=== PATIENT | female | born 1930 | race Caucasian/White ===

== ENCOUNTER 2018-10-10 17:30 | Inpatient (IN) | payer OTHER, BC ==
[~2018-10-10] VITALS: Ht 157.5 cm; Wt 68.9 kg
[2018-10-10 17:58] LABS: BASOPHIL % 0.2 % (0-2); PLATELET COUNT 213 x10^3mcL (130-400); RED CELL DISTRIBUTION WIDTH 14.1 % (11.5-14.5)
--- NOTE | 2018-10-10 18:12 | NUR ---
RECEIVED PATIENT, BIBA WITH [facility], PATIENT HERE FOR N/V TODAY X 3.//APR RN
[2018-10-10 18:13] LABS: CALCIUM 8.9 mg/dL (8.5-10.1); CARBON DIOXIDE 27.5 mmol/L (21-32); CHLORIDE SERUM 102 mmol/L (98-107); CREATININE SERUM 0.7 mg/dL (0.6-1.0); GLUCOSE SERUM 142 mg/dL (74-106); POTASSIUM SERUM 3.5 mmol/L (3.5-5.1); SODIUM SERUM 139 mmol/L (136-145)
[2018-10-10 18:18] LABS: ALBUMIN 2.8 g/dL (3.4-5.0); ALKALINE PHOSPHATASE 112 U/L (46-116); ALT/SGPT 18 U/L (14-59); AST/SGOT 9 U/L (15-37); BILIRUBIN TOTAL 0.47 mg/dL (0.20-1.00); TOTAL PROTEIN, SERUM 6.6 g/dL (6.4-8.2)
--- NOTE | 2018-10-10 18:30 | NUR ---
DR BLOOM AT BEDSIDE FOR RECTAL EXAM FOR OCCULT BLOOD, APR RN AT BEDSIDE VEGETABLE II FARMWORKER, CORN GRINDER AT BEDSIDE AT THIS TIME. PATIENT TOLERATED PROCEDURE WELL.WILL CONTINUE TO MONITOR//APR RN
--- NOTE | 2018-10-10 19:10 | NUR ---
RECEIVED REPORT FROM RAVI GOLDEN FOR CONTINUED CARE OF PATIENT.
--- NOTE | 2018-10-10 19:15 | NUR ---
REPORT GIVEN TO HAVEN RN FOR ISHAAN ENDORSEMETN//APR RN
--- NOTE | 2018-10-10 19:20 | NUR ---
INTRODUCED SELF TO PATIENT. PATIENT LYING ON GURNEY WITH CAREGIVER BEDSIDE. VSS, BREATHING E/U- NAD NOTED. WILL CONTINUE TO MONITOR.
--- NOTE | 2018-10-10 19:40 | NUR ---
PROVIDED CAREGIVER WIPES, CHUX AND DIAPERS PER REQUEST.
[2018-10-10] MEDS ORDERED: ONDANSETRON4 M3 SL (20:01)
[2018-10-10] MEDS ORDERED: NATURE S BOUNTY GT (20:03)
[2018-10-10] MEDS ORDERED: NUVIGIL150 M1 GT ×2 (20:04→20:06)
[2018-10-10] MEDS ORDERED: LIPI20 GT (20:07)
[2018-10-10] MEDS ORDERED: BIOTENE DRY MO473 ML (20:08)
[2018-10-10] MEDS ORDERED: CHLORHEXIDINE118 ML (20:09)
[2018-10-10] MEDS ORDERED: COLACE100 MG GT (20:10)
[2018-10-10] MEDS ORDERED: LACTULOSE20 GM/30 M GT (20:11)
[2018-10-10] MEDS ORDERED: LIDODERM51 TOP (20:12)
[2018-10-10] MEDS ORDERED: KLOR-CON M2020 MEQ GT (20:13)
[2018-10-10] MEDS ORDERED: NOR5 GT (20:14)
[2018-10-10] MEDS ORDERED: PROTONIX40 MG GT (20:14)
[2018-10-10] MEDS ORDERED: ENALAPRIL MALEAT5 MG GT (20:15)
[2018-10-10] MEDS ORDERED: ULTRAM50 MG GT (20:16)
[2018-10-10] MEDS ORDERED: QUETIAPINE FUMA25 M1 GT (20:17)
[2018-10-10] MEDS ORDERED: ZOFRAN8 MG PO (20:18)
--- NOTE | 2018-10-10 20:19 | NUR ---
MEDICATION RECONCILATION COMPLETED.
--- NOTE | 2018-10-10 21:26 | NUR ---
PROVIDED REPORT TO RAVI JARA FOR CONTINUED CARE OF PATIENT. PT VSS, NAD NOTED PRIOR TO TRANSFER. CAREGIVER BEDSIDE.
--- NOTE | 2018-10-10 21:35 | NUR ---
RECEIVED PT VIA [employer] FROM E/D, ACCOMPANIED BY RN, TRANSPORTER, AND PT'S CAREGIVER, RIZWANA. PT A/A/O X 1 (PERSON ONLY) AND SLOW/SLURRED SPEECH AT BASELINE. ON TELE # 30, NSR, HR 97, DENIES CHEST PAIN OR DISCOMFORT AT THIS TIME. SCD BY BEDSIDE. NO ACUTE RESPIRATORY DISTRESS NOTED. ABD SOFT, ROUND, NON-TENDER, NORMOACTIVE BOWEL SOUNDS X 4 QUADS, LAST BM 10/08/18, HARD, ON ASPIRATION PRECAUTIONS, GT TO MID-UPPER ABD 20FR, ON NTL + PUREE DIET TRIAL @ [facility], LOST > 10#/1 MONTH, POOR PO INTAKE, ON GTF. INCONTINENT OF BOWEL/BLADDER. LEFT-SIDED DEFICITS, USES W/C @ [facility], ABLE TO TURN SELF W/ ASSIST. REED 12, SCATTERED ECCHYMOSIS TO R LAT TRUNK, R TROCHANTER, R LAT THIGH, ALL NABEEL. IV SITE LFA 22G, CDI. ORIENTED PT AND CAREGIVER TO ROOM, BED CONTROLS, CALL LIGHT SYSTEM. SIDE RAILS UP X 2, BED IN LOW POSITION. WILL ENDORSE TO RAVI JARA.
[2018-10-10 22:13] VITALS: BP 151/55
--- NOTE | 2018-10-11 01:11 | NUR ---
PT SLEEPING SOUNDLY AND WILL CONTINUE TO MONITOR.
[2018-10-11 05:41] VITALS: BP 144/58
--- NOTE | 2018-10-11 06:21 | NUR ---
PT HAD A RESTING NIGHT NO CHANGE AT THIS TIME,KEPT CELAN AND DRY TO TOUCH AND NO CHANGE AT THIS TIME,WILL CONTINUE TO MONITOR.
--- NOTE | 2018-10-11 06:32 | NUR ---
PT HAD A RESTING NIGHT NO CHANGE AT THIS TIME,WILL CONTINUE TO MONITOR.
[2018-10-11 06:36] LABS: BASOPHIL % 0.4 % (0-2); PLATELET COUNT 170 x10^3mcL (130-400); RED CELL DISTRIBUTION WIDTH 14.5 % (11.5-14.5)
[2018-10-11 07:10] LABS: CREATININE SERUM 0.6 mg/dL (0.6-1.0); MAGNESIUM 1.9 mg/dL (1.8-2.4)
[2018-10-11 07:15] LABS: CALCIUM 8.5 mg/dL (8.5-10.1); CARBON DIOXIDE 24.3 mmol/L (21-32); CHLORIDE SERUM 109 mmol/L (98-107); GLUCOSE SERUM 108 mg/dL (74-106); PHOSPHOROUS 2.9 mg/dL (2.5-4.9); POTASSIUM SERUM 3.5 mmol/L (3.5-5.1); SODIUM SERUM 143 mmol/L (136-145)
--- NOTE | 2018-10-11 07:30 | NUR ---
RECEIVED PT FROM CLINIC CHARGE NURSE. PT AWAKE, ALERT. A/OX1 WITH CONFUSION NOTED. PT ON ROOM AIR WITH NO RESP DISTRESS NOTED. PT ON TELE 30, DENIES CHEST PAIN. IV ACCESS LFA C/D/I INFUSING NS AT 100ML/HR. PT HAS GTUBE, NO FEEDING AT THIS TIME. ACTIVE BS NOTED. PT STATES SHE HAD BM YESTERDAY WITH NO ISSUES. PT INC. PERIPHERAL PULSES PALPABLE, NO EDEMA NOTED. PT NOTED TO HAVE LEFT SIDED WEAKNESS. PT DENIES ABDOMINAL PAIN AT THIS TIME. SAFETY MEASURES IN PLACE. BED LOW AND LOCKED. CALL LIGHT WITHIN REACH.
[2018-10-11 09:11] VITALS: BP 158/59
--- NOTE | 2018-10-11 09:20 | NUR ---
PT WAS SEEN FOR DYSPHAGIA. PT HAD MILD COUGH FOR THIN LIQUID. PT WAS ABLE TO SAFELY SWALLOW PUREE DIET WITH NECTAR THICK LIQUID. RECOMMENDATION PUREE DIET WITH NECTAR THICK LIQUID SMALL BITES AND SIPS ONLY
--- NOTE | 2018-10-11 09:50 | NUR ---
PT TAKEN BY BED FOR EGD. TELEPHONE CONSENT RECEIVED BY JACQUELIN DIALLO-AUDREYATOR. PAPERWORK IN CHART. MEDS HELD FOR PROCEDURE PER DR BRICENO. NEW IV STARTED IN RIGHT FA 22G. LFA IV NOT INFUSING, IV REMOVED WITH CATHETER INTACT. SAFETY MAINTAINED.
[2018-10-11 11:00] VITALS: BP 152/67
--- NOTE | 2018-10-11 11:11 | NUR ---
PT BACK ON FLOOR AFTER PROCEDURE. PT SLEEPY BUT AROUSABLE. PT HAVING PERIODS OF APNEA, O2 2LNC APPLIED. NO ACUTE DISTRESS NOTED AT THIS TIME. SAFETY MEASURES MAINTAINED. VSS.
[2018-10-11 12:43] VITALS: BP 148/64
--- NOTE | 2018-10-11 12:58 | NUR ---
TUBE FEEDING STARTED ORDERED JEVITY 1.2 AT 20ML/HR. H2O FLUSH 30ML/HR Q6 HOURS. PT CAREGIVER AT BEDSIDE. NO ACUTE DISTRESS OR DISCOMFORT NOTED AT THIS TIME. PT ON ROOM AIR WITH NO RESP DISTRESS. HOB AT 35 DEGREES. SAFETY MEASURES MAINTAINED.
--- NOTE | 2018-10-11 15:00 | NUR ---
PT WITH NOTED ANXIETY, RESTLESSNESS, AND ANGER AT THIS TIME. PT TRYING TO GET OUT OF BED WITH CONFUSION NOTED. SEROQUEL ADMINISTERED ORDERED PRN FOR ANXIETY (SEE EMAR). CAREGIVER AT BEDSIDE. WILL CONT TO MONITOR.
--- NOTE | 2018-10-11 15:28 | NUR ---
PT SLEEPING AT THIS TIME. PT NOTED TO HAVE APNEA WHEN SLEEPING.
--- NOTE | 2018-10-11 17:20 | NUR ---
PT COMPLAINING OF HEADACHE. TYLENOL ADMINISTERED ORDERED PRN (SEE EMAR) NO RESIDUAL NOTED, HOB AT 35 DEGREES. SAFETY MAINTAINED. CAREGIVER AT BEDSIDE.
[2018-10-11 18:04] VITALS: BP 144/87
--- NOTE | 2018-10-11 18:54 | NUR ---
PT STABLE AT THIS TIME. ALL NEEDS MET THROUGHOUT SHIFT. WILL CONTINUE TO MONITOR AND ENDORSE CARE TO RN SOCIAL WORK.
--- NOTE | 2018-10-11 19:44 | NUR ---
PT RECIEVED AWAKE ALERT AND ORIENTED TO SELF PLACE AND PERSON, BUT WITH PEROIDS OF FORGETFULNESS,REG RESP NO SOB V/S STABLE,PT ABDO IS SOFT WITH ACTIVE BOWEL SOUNDS,PT HAS GT FEEDING AND PT TOLERATING IT WELL AT THIS TIME,HOB,PT ON TELE MONITOR AND IN NSR NO ECTOPY OR CHEST PAIN AT THIS TIME, KEPT CLEAN AND DRY TO TOUCH,CALL LIGHT EASY REACHED AND WILL CONTINUE TO MONITOR.
[2018-10-11 21:16] VITALS: BP 136/69
--- NOTE | 2018-10-11 23:05 | NUR ---
PT TOLERATING THE FEEDING,REPOSITION AND WAS MADE COMFORTABLE IN BED,WILL CONTINUE TO MONITOR.
[2018-10-12 06:07] VITALS: BP 152/81
--- NOTE | 2018-10-12 06:39 | NUR ---
PT HAD ATRESTING NIGHT NO CHANGE AT THIS TIME,WILL CONTINUE TO MONITOR.
[2018-10-12 06:43] LABS: CALCIUM 9.1 mg/dL (8.5-10.1); CHLORIDE SERUM 109 mmol/L (98-107); CREATININE SERUM 0.7 mg/dL (0.6-1.0); GLUCOSE SERUM 135 mg/dL (74-106); MAGNESIUM 2.3 mg/dL (1.8-2.4); PHOSPHOROUS 3.4 mg/dL (2.5-4.9); POTASSIUM SERUM 3.4 mmol/L (3.5-5.1); SODIUM SERUM 143 mmol/L (136-145)
[2018-10-12 07:12] LABS: BASOPHIL % 0.3 % (0-2); PLATELET COUNT 173 x10^3mcL (130-400)
--- NOTE | 2018-10-12 07:35 | NUR ---
A+OX1, TELE 30, NO RESPRIATORY DISTRESS NOTED, DENIES PAIN, TELE 30, PULSES MODERATE AND EQUAL SIMON, NO EDEMA NOTED, BOWEL SOUNDS ACTIVE, G TUBE TO L ABD WITH JEVITY @ 50 ML/HR, INCONTINENT, L SIDE WEAKNESS, WC BOUND, SCATTERED ECCHYMOSIS, IV IN LFA SALINE LOCKED, SITE WNL.
[2018-10-12 07:51] LABS: RED CELL DISTRIBUTION WIDTH 14.7 % (11.5-14.5)
[2018-10-12 09:17] VITALS: BP 170/68
--- NOTE | 2018-10-12 10:03 | NUR ---
PT RESTING IN BED, TEARFUL, EMOTIONAL, STATES SHE DOESNT KNOW WHAT HAPPENED OR WHY SHE IS HERE. PT REORIENTED, PT VERY ANXIOUS. PT REPOSITIONED TO R SIDE, SEROQUEL GIVEN FOR ANXIETY. 0 RESIDUAL FROM G TUBE. JEVITY INFUSING WELL.
--- NOTE | 2018-10-12 12:13 | NUR ---
PT CONT TO BE EMOTIONAL, ANXIOUS, AND TEARFUL, PT REPOSITIONED TO L SIDE, DID ORAL CARE ON PT, CALL LIGHT WITHIN REACH. PT GIVEN EMOTIONAL SUPPORT.
--- NOTE | 2018-10-12 13:17 | NUR ---
PER JOSEPH GARCIA FOR PT TO HAVE PUREE DIET. PT HAD LARGE BM, PT CLEANED, LINENS CHANGED, PT REQUESTING TO STAY POSITIONED ON L SIDE, HOB @ 90 DEGREES, PT FEEDING SELF, TOLERATING PUREE DIET WELL.
--- NOTE | 2018-10-12 13:30 | NUR ---
1. Recommend Ensure Enlive BID. This will provide additional 700 kcal and 40g protein. 2. Recommend continuing puree diet with nectar thick liquids.
--- NOTE | 2018-10-12 13:30 | NUR ---
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, dementia, HTN, GERD, and osteoarthritis PSHx: Cholecystectomy Labs: K 3.4L, BG 135H, HGB 11.3L Meds: Colace, ferrous sulfate, Lipitor, Lopressor, Reglan, Vitamin D, Zofran Diet: TF Jevity 1.2 @ 20 ml/hr, goal 50 ml/hr, frequency of advancement Q12H, FWF 30ml Q6H PO Intake: NPO Ht: 157.48 cm (62) Wt: 68.9 kg (151#) BMI: 27.8 kg/m2 Bed scale: 69 kg IBW: 110# (50 kg) %IBW: 137 UBW: unable to access Age: 88/F Food Allergies: NKFA Skin: scattered ecchymosis Gonzalo: 15 Edema: none GI: G tube Last BM: 10/10 Per H&P, Pt is a 88 yo female with a PMH of 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 Associated symptoms are chills, chest discomfort, constipation, dysphagia, weakness. She had a G-tube placed 1.5 months ago after her stroke. RDN Visit (10/12): Patient appeared to be confused. TF Jevity 1.2 was running @ 50 ml/hr. Per RAVI Hurtado, patient is very emotional and confused. Patient does not have any N/V and does not have any residuals. Per MAYNOR burris (10/11) patient is safe to consume puree diet with nectar thick liquid, small bites and sips only. FNS received consult for "advise to add protein drinks" on 10/12. Discussed recommendations with Dr. Munguia. Problem with: N/V/D/C: none Problems with: Chewing/Swallowing: yes, per TRANSPORTATION TECHNICIAN [place], pt cleared for puree diet Current appetite: unable to access Recent wt change: unable to access %wt change: N/A Vitamin/Supplement use: unable to access Special diet at home: unable to access Physical activity: unable to access Nutrition education given: not appropriate at this time Food-drug interactions: Colace- high fiber w/8995-9563 ml fluids Education given: no Estimated Nutritional Needs Based on current body weight 68.9 kg Energy: 9682-2154 kcal/d (25-30 kcal/kg) Protein: 68-82 g/d (1.0-1.2 g/kg) - geriatric maintenance Fluid: 0346-0073 ml/d (1 ml/kcal) or per doctor Nutrition Diagnosis 1. Increased nutrient needs related to increased metabolic demands, GI blood loss as evidenced by estimated calorie and protein needs. Intervention 1. Recommend Ensure Enlive BID. This will provide additional 700 kcal and 40g protein. 2. Recommend continuing puree diet with nectar thick liquids. Monitor/Evaluate Goal: PO intake at least 75% of estimated needs Monitor: PO intake, Labs, GI function F/U in 2-3 days as moderate risk 8/3-5
--- NOTE | 2018-10-12 14:04 | NUR ---
PT HAD 2 MORE WATERY BM, CAREGIVER ASSISTED TO CLEAN PT AND REPOSITION HER TO SUPINE, LINENS CHANGED, CALL LIGHT WITHIN REACH.
[2018-10-12 14:13] VITALS: BP 159/68
--- NOTE | 2018-10-12 15:15 | NUR ---
PT HAD ANOTHER WATERY BM, ASSISTED CAREGIVER TO CLEAN PT AND CHANGE LINENS, , PT STATES SHE IS COMFORTABLE IN SUPINE POSITION, CALL LIGHT WITHIN REACH.
--- NOTE | 2018-10-12 15:23 | NUR ---
DR HAMILTON NOTIFIED OF K 3.4 AND STATED K REPLACMENT NOT NECESSARY.
[2018-10-12 17:01] VITALS: BP 147/70
--- NOTE | 2018-10-12 17:36 | NUR ---
PT RESTING IN BED, NO RESPIRATORY DISTRESS NOTED, COMPLAINING OF GENERALIZED PAIN, TYLENOL GIVEN VIA G TUBE, FEEDING TUBING CHANGED, NEW BAG OF JEVITY 1.2 HUNG @ 50 ML/HR WITH H20 @ 30 ML Q6HRS. CAREGIVER AT BEDSIDE. PT COUGHING WHILE EATING PUREE DIET. CALL LIGHT WITHIN REACH.
--- NOTE | 2018-10-12 18:41 | NUR ---
PT RESTING IN BED, NO RESPIRATORY DISTRESS NOTED, REPOSITIONED TO R SIDE, HAD BM AND VOIDED, CLEANED, LINENS CHANGED, CAREGIVER AT BEDSIDE.
--- NOTE | 2018-10-12 19:13 | NUR ---
ENDORSED CARE TO MASSIMO RODRIGUES.
--- NOTE | 2018-10-12 19:30 | NUR ---
PT RESTING IN BED. CAREGIVER AT BEDSIDE. PT AAOX2. ORIENTED TO SELF, PLACE AND MONTH. REORIENTED TO SPECIFIC HOSPITAL AND YEAR. FOLLOWS COMMANDS. SPEECH CLEAR, NO FACIAL DROOP. HX DEMENTIA. TELE 30. DENIES CP, DIZZINESS, OR PALPITATIONS. DENIES RESP DISTRESS SOB. RESPIRATIONS SHALLOW AND UNLABORED, SPO2 94% ON RA. ABD SOFT/ROUND. DENIES ABD PAIN, TENDERNESS, OR N/V. PEG TO LUQ, DRESSING CDI. TF INFUSING JEVITY 1.2 @ 50 ML/HR, 30 ML H20 FLUSH Q6. 30 ML RESIDUAL, REPLACED. VOIDING WITH INCONTINENCT. GEN WEAKNESS. ABLE TO MOVE ALL EXTREMITIES. REPOSITIONING Q2H. ECCHYMOSIS TO SIMON HIPS AND BLE. LIDOCAINE PATCH TO R SHOULDER. DENIES PAIN OR DISCOMFORT AT THIS TIME. IV TO RFA FLUSHED AND PATENT, SITE WNL. CALL LIGHT WITHIN REACH, BED AT LOWEST POSITION, BED ALARM ON, SIDE RAILS UP X3. WILL CONTINUE TO MONITOR.
--- NOTE | 2018-10-12 19:59 | NUR ---
SPOKE TO DR. WAY. MADE AWARE OF K 3.4
[2018-10-12 20:29] VITALS: BP 142/58
--- NOTE | 2018-10-12 23:51 | NUR ---
PT C/O ANXIETY AND BEING UNABLE TO SLEEP. DR. WAY MADE AWARE. CAREGIVER AT BEDSIDE.
--- NOTE | 2018-10-13 00:02 | NUR ---
AMBIEN GIVEN VIA PEG. NO RESIDUAL PRIOR TO ADMINISTRATION. RESPIRATIONS SHALLOW AND UNLABORED. PT DENIES ANY PAIN. CAREGIVER AT BEDSIDE. CALL LIGHT WITHIN REACH, BED AT LOWEST POSITION. WILL CONTINUE TO MONITOR.
--- NOTE | 2018-10-13 01:16 | NUR ---
PT RESTING IN BED WITH EYES CLOSED. CAREGIVER STATES PT IS FALLING IN AND OUT OF SLEEPING. RESPIRATIONS EVEN/UNLABORED ON RA. CALL LIGHT WITHIN REACH, BED AT LOWEST POSITION. WILL CONTINUE TO MONITOR.
--- NOTE | 2018-10-13 05:12 | NUR ---
PT C/O 10/22 R SHOULDER PAIN. LIDOCAINE PATCH IN PLACE. ONLY TYLENOL ON BOARD. MED REC SHOWS PT TAKES TRAMADOL FOR PAIN. DR. WAY MADE AWARE.
[2018-10-13 05:42] VITALS: BP 150/63
--- NOTE | 2018-10-13 06:21 | NUR ---
PT STILL C/O 09/21 R SHOULDER PAIN S/P TRAMADOL. PT ALSO C/O ABD PAIN. ABD SOFT/DISTENDED. TF HELD FOR NOW D/T DISTENTION. NO RESIDUALS. REQUESTED ALT PAIN MED FROM DR. WAY VIA [facility].
[2018-10-13 06:57] LABS: BASOPHIL % 0.1 % (0-2); PLATELET COUNT 198 x10^3mcL (130-400)
[2018-10-13 07:23] LABS: CALCIUM 8.8 mg/dL (8.5-10.1); CHLORIDE SERUM 109 mmol/L (98-107); CREATININE SERUM 0.7 mg/dL (0.6-1.0); GLUCOSE SERUM 149 mg/dL (74-106); MAGNESIUM 2.1 mg/dL (1.8-2.4); PHOSPHOROUS 2.8 mg/dL (2.5-4.9); POTASSIUM SERUM 3.5 mmol/L (3.5-5.1); SODIUM SERUM 145 mmol/L (136-145)
[2018-10-13 07:27] LABS: RED CELL DISTRIBUTION WIDTH 14.9 % (11.5-14.5)
--- NOTE | 2018-10-13 08:13 | NUR ---
A+OX1, CONFUSED, EMOTIONAL, TEARFUL, [place] BOTH EARS, TELE 30, PULSES MODERATE AND EQUAL SIMON, NO EDEMA NOTED, LUNG SOUNDS CTA TOLERATING RA, BOWEL SOUNDS ACTIVE, WATERY BM, PEG TUBE LUQ WITH JEVITY @ 50 ML/HR, 30 ML H2O FLUSH @ 30 ML Q 6HRS, INCONTINENT, GENERALIZED WEAKNESS, L SIDE WEAKNESS, CATTERED ECCHYMOSIS, IV IN RFA SALINE LOCKED, SITE WNL.
[2018-10-13 08:18] VITALS: BP 140/80
--- NOTE | 2018-10-13 09:52 | NUR ---
PT PLACED IN CHAIR BY PHYSICAL THERAPY, CALL LIGHT WITHIN REACH, NO RESPRIATORY DISTRESS NOTED, PT EDUCATED NOT TO GET UP ALONE AND TO USE CALL LIGHT FOR HELP.
--- NOTE | 2018-10-13 10:28 | NUR ---
PT STILL SITTING IN CHAIR AT BEDSIDE, NO RESPRIATORY DISTRESS NOTED, COMPALINING OF PAIN R SHOULDER, LIDOCAINE PATCH PLACED ON R SHOULDER, CALL LIGHT WITHIN REACH.
[2018-10-13 11:39] VITALS: BP 133/78
--- NOTE | 2018-10-13 11:59 | NUR ---
PT RESTING IN BED, NO RESPIRATORY DISTRESS NOTED, COMPLAINING OF BACK PAIN, DECLINED PAIN MEDS, REPOSITIONED TO R SIDE, PEG TUBE CONT TO HAVE 0 RESIDUAL, PT WAS PLACED BACK IN BED BY PHYSICAL THERAPY, CALL LIGHT WITHIN REACH. PT CONT TO BE EMOTIONAL AND TEARFUL. PT GIVEN EMOTIONAL SUPPORT.
--- NOTE | 2018-10-13 14:58 | NUR ---
PT COMPLAINING OF ABD PAIN, ALLYN CLOTHING PATTERN PREPARER AT BEDSIDE TO ASSESS PT, TORADOL IVP GIVEN, CAREGIVER AT BEDSIDE, CALL LIGHT WITHIN REACH.
--- NOTE | 2018-10-13 15:06 | NUR ---
PHYSICAL THERAPY DAILY NOTES CO-SIGN All documentation done by the Sewing Machinist for 10/13/18 has been reviewed. I agree with the documentation. Reviewed/Co-Signed by: Anupama Mixon PT Documentation Done by:ROSAS REYNOLDS PTA
--- NOTE | 2018-10-13 15:44 | NUR ---
PT RESTING IN BED, NO RESPIRATORY DISTRESS NOTED, DENIES PAIN, CAREGIVER AT BEDSIDE, CALL LIGHT WITHIN REACH.
[2018-10-13 15:48] VITALS: BP 150/74
--- NOTE | 2018-10-13 19:10 | NUR ---
RECEIVED PT FROM PREVIOUS SHIFT NURSE. PT AOX2, ORIENTED TO SELF AND PLACE, CONFUSED AND FORGETFUL. ON TELE #30, NSR. DENIES CP/PRESSURE. DENIES SOB/DIFFICULTY BREATHING, ON RA. PEG TO LUQ WITH JEVITY INFUSING AT 50ML/H. GEN WEAKNESS, L. SIDED WEAKNESS MORE THAN R. BED BOUND. ECCHYMOSIS NOTED TO B/L HIPS AND BLE. IV TO RFA, INTACT AND PATENT. BED IN LOWEST POSITION. CALL LIGHT WITHIN REACH. WILL CONTINUE TO MONITOR.
--- NOTE | 2018-10-13 19:46 | NUR ---
ENDORSED CARE TO NURY RODRIGUES.
[2018-10-13 20:38] VITALS: BP 156/76
[2018-10-13 21:39] VITALS: Ht 157.5 cm; Wt 68.9 kg
--- NOTE | 2018-10-14 02:00 | NUR ---
PT RESTING IN BED. RR EVEN AND UNLABORED. IN NO ACUTE DISTRESS. CALL LIGHT WITHIN REACH. BED IN LOWEST POSITION. WILL CONTINUE TO MONITOR.
[2018-10-14 06:01] VITALS: BP 185/72
[2018-10-14 07:12] LABS: CALCIUM 8.2 mg/dL (8.5-10.1); CARBON DIOXIDE 26.2 mmol/L (21-32); CHLORIDE SERUM 109 mmol/L (98-107); CREATININE SERUM 0.7 mg/dL (0.6-1.0); GLUCOSE SERUM 145 mg/dL (74-106); POTASSIUM SERUM 3.5 mmol/L (3.5-5.1); SODIUM SERUM 145 mmol/L (136-145)
--- NOTE | 2018-10-14 07:15 | NUR ---
RECEIVED PT FROM DELIVERY OF [employer]. PT AWAKE ALERT, A/OX2 WITH CONFUSION NOTED. PT CRYING BUT DENIES PAIN AT THIS TIME. PT STATES SHE "FEELS LIKE AN IDIOT". REASSURANCE PROVIDED TO PT. PT ON ROOM AIR WITH NO RESP DISTRESS NOTED. PT ON TELE 30, DENIES CHEST PAIN. IV ACCESS RFA, C/D/I, SALINE LOCKED. PT HAS GTUBE WITH JEVITY 1.2 AT 50ML/HR. NO GASTRIC RESIDUAL NOTED. HOB AT 35 DEGREES. PERIPHERAL PULSES PALPABLE, NO EDEMA NOTED. PT INCONTINENT. PT NOTED TO HAVE GENERALIZED WEAKNESS. SAFETY MEASURES IN PLACE, BED LOW AND LOCKED. CALL LIGHT WITHIN REACH.
[2018-10-14 08:29] LABS: BASOPHIL % 0.4 % (0-2); PLATELET COUNT 192 x10^3mcL (130-400); RED CELL DISTRIBUTION WIDTH 15.1 % (11.5-14.5)
[2018-10-14 08:45] VITALS: BP 148/64
[2018-10-14] MEDS ORDERED: FERROUS SULFAT325 M2 PO (10:13)
[2018-10-14] MEDS ORDERED: OMEPRAZOLE40 M1 PO (10:13)
[2018-10-14] MEDS ORDERED: COLACE100 MG PO (10:14)
--- NOTE | 2018-10-14 10:30 | NUR ---
PT RESTING QUIETLY AND COMFORTABLY AT THIS TIME. NO ACUTE DISTRESS. WILL CONTINUE TO MONITOR.
--- NOTE | 2018-10-14 11:35 | NUR ---
DUE MEDS ADMINISTERED VIA GTUBE, NO GASTRIC RESIDUAL NOTED. HOB AT 35 DEGREES. PT CLEANED AND REPOSITIONED AT THIS TIME. PT SHOWING NOTED ANXIETY AND CRYING. SEROQUEL ADMINISTERED VIA GTUBE ORDERED PRN (SEE EMAR). SAFETY MAINTAINED.
--- NOTE | 2018-10-14 13:10 | NUR ---
CAREGIVER AT BEDSIDE. NO ACUTE DISTRESS OR DISCOMFORT NOTED AT THIS TIME. SAFETY MAINTAINED.
[2018-10-14 13:30] VITALS: BP 143/71
--- NOTE | 2018-10-14 14:36 | NUR ---
PHYSICAL THERAPY DAILY NOTES CO-SIGN All documentation done by the Commercial Litigation Paralegal for 10/14/18 has been reviewed. I agree with the documentation. Reviewed/Co-Signed by: Anupama Mixon PT Documentation Done by:ROSAS REYNOLDS PTA
--- NOTE | 2018-10-14 16:34 | NUR ---
CALLED K[facility] GAVE REPORT. PT TO BE TRANSFERRED, TRANSPORT ON WILL CALL. PT SLEEPING AT THIS TIME WITH NO ACUTE DISTRESS OR DISCOMFORT NOTED. CAREGIVER AT BEDSIDE.
[2018-10-14 18:00] VITALS: BP 123/63
[2018-10-14 18:19] VITALS: BP 123/63
[2018-10-14] MEDS ORDERED: GOOD SENSE ASPI81 M3 GT (18:34)
--- NOTE | 2018-10-14 18:47 | NUR ---
PT DISCHARGED TO [facility] BY [facility] WITH CAREGIVER AT SIDE. IV REMOVED WITH CATHETER INTACT. NO ACUTE DISTRESS OR DISCOMFORT NOTED AT THIS TIME. GTUBE DRESSING CHANGED. ALL NEEDS TENDED TO THROUGHOUT SHIFT.
== END 2018-10-14 18:47 | DRG 380 ==
LOC: ED 17:30 → DU 20:40
PROVIDERS: Internal Medicine; Internal Medicine Gastroenterology; Specialist; ADMIT General Practice
PROC: 0DB58ZX Excision of Esophagus, Via Natural or Artificial Opening Endoscopic, Diagnostic (ICD-10-PCS; principal; 2018-10-11 09:00)
DX: K22.11 Ulcer of esophagus with bleeding (principal); N17.0 Acute kidney failure with tubular necrosis; I69.354 Hemiplegia and hemiparesis following cerebral infarction affecting left non-dominant side; E44.0 Moderate protein-calorie malnutrition; K44.9 Diaphragmatic hernia without obstruction or gangrene; K21.9 Gastro-esophageal reflux disease without esophagitis; F41.9 Anxiety disorder, unspecified; I10 Essential (primary) hypertension; E78.5 Hyperlipidemia, unspecified; F03.90 Unspecified dementia, unspecified severity, without behavioral disturbance, psychotic disturbance, mood disturbance, and anxiety; M19.90 Unspecified osteoarthritis, unspecified site; Z68.27 Body mass index [BMI] 27.0-27.9, adult; Z93.1 Gastrostomy status; Z79.82 Long term (current) use of aspirin
CPT/HCPCS: 43235; 92526-GN; 92610; 97110-GP; 97530-GP; C9113; G0378; J1200; J1610; J1885; J2250; J2310; J3010; J3490; J7030; J8597; Q0092